=== PATIENT | female | born 1970 | race African-American/Black ===

== ENCOUNTER 2018-11-21 08:42 | Inpatient (IN) | payer MEDICAID, OTHER ==
[~2018-11-21] VITALS: Ht 162.6 cm; Wt 53.6 kg
[2018-11-21] MEDS ORDERED: SODIUM CHLORIDE 0.9% 1,000 ML IV ONE ×2 (09:46)
[2018-11-21] MEDS ORDERED: MORPHINE SULFATE 4 MG/ML SYR/VIAL IV ONE (10:00)
[2018-11-21] MEDS ORDERED: LORazepam 2MG/ML-1ML VIAL IV ONE (10:00)
[2018-11-21] MEDS ORDERED: hydrALAZINE HCL 20 MG/ML VL IV ONE (10:00)
[2018-11-21] MEDS ORDERED: PROMETHAZINE HCL 25 MG/ML 1ML IV ONE (10:00)
[2018-11-21 10:30] LABS: Basophils # (auto) 0 uL; Basophils % (auto) 0.5 % (0.0-2.0); Eosinophils # (auto) 0 uL; Eosinophils % (auto) 0.1 % (0.0-7.0); Hemoglobin 13.2 g/dL (12.2-16.2); Lymphocytes # (auto) 1.6 uL; Lymphocytes % (auto) 24.5 % (10.0-50.0); Mean Corpuscular Hemoglobin 28.5 pg (28.0-32.0); Mean Corpuscular Hgb Conc. 33.8 g/dL (32.0-36.0); Mean Corpuscular Volume 84.5 fL (80.0-100.0); Monocytes # (auto) 0.3 uL; Monocytes % (auto) 5.4 % (0.0-12.0); Neutrophils # (auto) 4.4 uL; Neutrophils % (auto) 69.5 % (37.0-80.0); Nucleated Red Blood Cells % 0.1 %; Platelet Count (auto) 228 10^3/uL (140-450); Red Blood Cells 4.61 10^6/uL (4.0-5.20); Red Cell Distribution Width 12.3 % (11.8-14.3); White Blood Cell 6.4 10^3/uL (4.4-10.8)
[2018-11-21 10:44] LABS: Albumin 4.4 g/dL (3.4-5.0); Calcium 9.1 mg/dL (8.5-10.1); Magnesium 1.7 mg/dL (1.6-2.6); Potassium 3.1 mmol/L (3.5-5.1)
[2018-11-21 10:50] LABS: BUN/Creatinine Ratio 13.6; Bilirubin, Total 0.6 mg/dL (0.2-1.0); Total Protein 9.3 g/dL (6.4-8.2)
[2018-11-21 11:00] LABS: Urine Bacteria NONE SEEN /hpf (None Seen); Urine Blood Negative /uL (Negative); Urine Mucus FEW (None Seen); Urine Specific Gravity 1.012 (1.001-1.035); Urine WBC <1 /hpf (0 - 5)
[2018-11-21] MEDS ORDERED: IOHEXOL 300 MG/ML 100ML BOTTLE IJ ONE ×2 (13:22→13:42)
[2018-11-21] MEDS ORDERED: ENOXAPARIN SOD 100 MG/1 ML SYRINGE SC ONE (14:00)
[2018-11-21] MEDS ORDERED: HYDROcodone-ACET 5/325MG TAB PO PRN (14:15)
[2018-11-21] MEDS ORDERED: NITROGLYCERIN 0.4 MG SL TAB SL PRN (14:15)
[2018-11-21] MEDS ORDERED: LORazepam 0.5 MG TAB PO PRN (14:15)
[2018-11-21] MEDS ORDERED: SOD CHL 0.9%/ KCL 20MEQ 1,000 ML IV SCH (14:15)
[2018-11-21] MEDS ORDERED: DEXTROSE (50%) 50ML SYRG IV PRN (14:15)
[2018-11-21] MEDS ORDERED: MORPHINE SULFATE 4 MG/ML SYR/VIAL IV PRN (14:15)
[2018-11-21] MEDS ORDERED: TEMAZEPAM 15 MG CAP PO PRN (14:15)
[2018-11-21] MEDS ORDERED: PANTOPRAZOLE 40 MG/10 ML VIAL IV ONE (14:15)
[2018-11-21] MEDS ORDERED: ACETAMINOPHEN 500 MG TAB PO PRN (14:15)
[2018-11-21] MEDS ORDERED: PROMETHAZINE HCL 25 MG/ML 1ML IV PRN (14:15)
[2018-11-21] MEDS ORDERED: LACTULOSE 20Gm/30ML SOLN PO PRN (14:15)
[2018-11-21] MEDS: NICARDIPINE 25MG/250ML BAG KIT 250 ML IV SCH ×2 (14:35→19:47)
[2018-11-21 17:18] LABS: Alcohol, Urine < 3.0 mg/dL (0-5); Amphetamine Screen, Urine NEGATIVE (NEGATIVE); Barbiturate Scree,Urine NEGATIVE (NEGATIVE); Benzodiazephine Screen, Urine NEGATIVE (NEGATIVE); Cannabinoid Screen, Urine NEGATIVE (NEGATIVE); Cocaine Screen, Urine NEGATIVE (NEGATIVE); Opiate Scree,Urine NEGATIVE (NEGATIVE); Phencyclidine Screen, Urine NEGATIVE (NEGATIVE)
[2018-11-21] MEDS: POTASSIUM CHL 20MEQ/100ML 100 ML IV SCH ×2 (18:09→21:53)
[2018-11-21] MEDS: ACCU-CHEK COMFORT CURVE STRIP VI SCH (18:11)
[2018-11-21] MEDS: CARVEDILOL 3.125 MG TAB PO SCH (21:59)
[2018-11-21] MEDS: ATORVASTATIN 20 MG TAB PO SCH (22:00)
[2018-11-21] MEDS: SODIUM CHLOR 0.9% PF (SALINE LOCK) 10ML VIAL/SYR IV SCH (22:00)
[2018-11-21] MEDS: METOPROLOL TARTRATE 25 MG TAB PO SCH (22:01)
[2018-11-22] MEDS: NICARDIPINE 25MG/250ML BAG KIT 250 ML IV SCH ×3 (00:03→09:58)
[2018-11-22] MEDS: ACCU-CHEK COMFORT CURVE STRIP VI SCH ×4 (00:10→17:44)
[2018-11-22] MEDS: SODIUM CHLOR 0.9% PF (SALINE LOCK) 10ML VIAL/SYR IV SCH ×3 (06:08→22:26)
[2018-11-22 08:17] LABS: Basophils # (auto) 0 uL; Basophils % (auto) 0.4 % (0.0-2.0); Eosinophils # (auto) 0 uL; Eosinophils % (auto) 0.2 % (0.0-7.0); Hemoglobin 13.5 g/dL (12.2-16.2); Lymphocytes # (auto) 1.4 uL; Lymphocytes % (auto) 17.9 % (10.0-50.0); Mean Corpuscular Hemoglobin 29.8 pg (28.0-32.0); Mean Corpuscular Hgb Conc. 35.6 g/dL (32.0-36.0); Mean Corpuscular Volume 83.7 fL (80.0-100.0); Monocytes # (auto) 0.6 uL; Monocytes % (auto) 7.9 % (0.0-12.0); Neutrophils # (auto) 5.7 uL; Neutrophils % (auto) 73.6 % (37.0-80.0); Nucleated Red Blood Cells % 0.1 %; Platelet Count (auto) 209 10^3/uL (140-450); Red Blood Cells 4.54 10^6/uL (4.0-5.20); Red Cell Distribution Width 12.4 % (11.8-14.3); White Blood Cell 7.8 10^3/uL (4.4-10.8)
[2018-11-22 08:28] LABS: Albumin 3.9 g/dL (3.4-5.0); Calcium 8.9 mg/dL (8.5-10.1); Potassium 3.3 mmol/L (3.5-5.1)
[2018-11-22 08:33] LABS: BUN/Creatinine Ratio 10.8; Bilirubin, Total 0.9 mg/dL (0.2-1.0); Total Protein 8.9 g/dL (6.4-8.2)
[2018-11-22 08:39] LABS: Amylase 49 U/L (25-115); Cholesterol 131 mg/dL (< 200); HDL Cholesterol 60 mg/dL (40-59); LDL Cholesterol 52 mg/dL (< 100); Lipase 143 U/L (73-393); Triglycerides 103 mg/dL (< 150)
[2018-11-22] MEDS: PANTOPRAZOLE 40 MG/10 ML VIAL IV SCH (09:08)
[2018-11-22] MEDS: ASPirin 81 mg TAB PO SCH (09:09)
[2018-11-22] MEDS: ENALAPRIL MALEATE 10 MG TAB PO SCH (09:09)
[2018-11-22] MEDS: METOPROLOL TARTRATE 25 MG TAB PO SCH ×2 (09:09→22:28)
[2018-11-22] MEDS: NITROGLYCERIN 0.2MG/HR TOPICAL PATCH TD SCH (09:10)
[2018-11-22] MEDS: CARVEDILOL 3.125 MG TAB PO SCH ×2 (09:18→22:26)
[2018-11-22] MEDS: ENOXAPARIN SOD 40 MG/0.4 ML SYRINGE SC SCH (09:22)
[2018-11-22 12:55] VITALS: BP 133/93
[2018-11-22 13:00] VITALS: BP 126/97
--- NOTE | 2018-11-22 13:00 | NUR ---
Telemetry admit from ER JO ANNJUDYCLIFF admitted to Telemetry unit after no report received.Patient oriented to Jolene Strong, primary RN, unit, room, bed, and unit policies regarding patient care and visiting hours. Patient is awake, alert and oriented X4. No signs or symptoms of pain, shortness of breath or discomfort. Patient now on continuous telemetry monitoring, tele box #6 and telemetry reading on arrival to unit is sinus rhythm @ 67 bpm. IV to right hand, 22 gauge, patent and saline locked. Patient placed on bedside oxygen, weighed by bedscale and encouraged to call if they need something. All questions and concerns addressed, patient verbalized understanding. Bed locked, in lowest position, call light within reach, will continue to monitor Q 1 hour and PRN.
--- NOTE | 2018-11-22 14:30 | NUR ---
MRCP Patient taken for MRCP via wheelchair, no distress noted upon departure.
--- NOTE | 2018-11-22 14:50 | NUR ---
MRCP Patient brought back up from MRCP, per Adelso, histotechnologist, patient refused MRCP. Notified Dr Charles, verbalized understanding.
[2018-11-22] MEDS: MORPHINE SULFATE 4 MG/ML SYR/VIAL IV PRN ×3 (15:26→23:02)
[2018-11-22 16:30] VITALS: BP 150/82
--- NOTE | 2018-11-22 17:44 | NUR ---
POC 128
--- NOTE | 2018-11-22 19:22 | NUR ---
Care endorsed to OUMOU Danielson, night nurse.
--- NOTE | 2018-11-22 19:30 | NUR ---
Opening Shift Note Assumed care of patient, patient asleep / resting. No S/S of distress/SOB or pain. Will continue to monitor for changes Q1hr and PRN.
--- NOTE | 2018-11-22 21:02 | NUR ---
Patient is adamant about transferring to [place]. Patient stated that she will sign herself out tomorrow if she does not get transferred tomorrow. Will inform dayshift RN.
[2018-11-22 21:37] VITALS: BP 106/54
[2018-11-22] MEDS: ATORVASTATIN 20 MG TAB PO SCH (22:28)
[2018-11-23] MEDS: ACCU-CHEK COMFORT CURVE STRIP VI SCH ×4 (00:27→17:37)
[2018-11-23 04:43] VITALS: BP 143/78
[2018-11-23] MEDS: SODIUM CHLOR 0.9% PF (SALINE LOCK) 10ML VIAL/SYR IV SCH ×2 (06:00→13:48)
[2018-11-23 08:00] VITALS: BP 159/86
--- NOTE | 2018-11-23 08:00 | NUR ---
Opening Shift Note Assumed care of patient, awake, alert and oriented X4. No S/S of distress/SOB, complains of right posterior flank and lower abdominal pain, 4/10, Andujar Tai scale, medicated with prescribed pain medication. Tele# 6, sinus rhythm @ 86 bpm. IV to right hand, 22 gauge, patent and saline locked. Instructed on POC and to call for assist PRN, verbalized understanding. Patient frustrated that she has not been seen by a doctor since yesterday morning in the ER. Informed there will be a doctor in to see her today, verbalized understanding but remains insistent that she wants to go to [place] "where she will be seen by a doctor" and if she is not transferred there today she will "sign" herself out AMA. Bed locked, in lowest position, call light within reach, will continue to monitor for changes Q1hr and PRN.
[2018-11-23] MEDS: MORPHINE SULFATE 4 MG/ML SYR/VIAL IV PRN (08:36)
[2018-11-23] MEDS: PANTOPRAZOLE 40 MG/10 ML VIAL IV SCH (09:52)
[2018-11-23] MEDS: METOPROLOL TARTRATE 25 MG TAB PO SCH (09:53)
[2018-11-23] MEDS: CARVEDILOL 3.125 MG TAB PO SCH (09:53)
[2018-11-23] MEDS: ENALAPRIL MALEATE 10 MG TAB PO SCH (09:53)
[2018-11-23] MEDS: ASPirin 81 mg TAB PO SCH (10:00)
[2018-11-23] MEDS: NITROGLYCERIN 0.2MG/HR TOPICAL PATCH TD SCH (10:00)
[2018-11-23] MEDS: ENOXAPARIN SOD 40 MG/0.4 ML SYRINGE SC SCH (10:00)
--- NOTE | 2018-11-23 10:33 | NUR ---
LABS Patient refused lab draw, wants to speak with the doctor first. Awaiting provider.
--- NOTE | 2018-11-23 10:54 | NUR ---
CARDIOLOGY Dr Gomes at bedside for Cardiology consult, no new orders received at this time. Patient updated on plan of care, verbalized understanding.
[2018-11-23 12:00] VITALS: BP 131/82
--- NOTE | 2018-11-23 15:54 | NUR ---
ROUNDS Dr Nowak at bedside for rounds, new orders received and followed through. Patient updated on plan of care, verbalized understanding.
[2018-11-23 16:00] VITALS: BP 133/83
[2018-11-23 17:06] VITALS: BP 133/83
== END 2018-11-23 18:35 | disposition home or self-care (01) | DRG 190 ==
LOC: ER 08:42 → OVERFLOW 14:08 → TELE-WESTW 11-22 12:47
PROVIDERS: ADMIT Internal Medicine; ATTEND Internal Medicine
DX: I21.4 Non-ST elevation (NSTEMI) myocardial infarction (principal); E87.1 Hypo-osmolality and hyponatremia; K80.20 Calculus of gallbladder without cholecystitis without obstruction; I16.0 Hypertensive urgency; E87.6 Hypokalemia; D25.9 Leiomyoma of uterus, unspecified; I10 Essential (primary) hypertension; K42.9 Umbilical hernia without obstruction or gangrene; K86.9 Disease of pancreas, unspecified; R73.9 Hyperglycemia, unspecified; I08.0 Rheumatic disorders of both mitral and aortic valves
CPT/HCPCS: 36415; 70450; 71045; 74176; 74177; 76705; 80053; 80061; 80307; 81001; 81025; 82150; 82378; 82550; 82962; 83036; 83690; 83735; 83880; 84443; 84484; 85025; 85652; 86141; 93005; 93306; 96361; 96372; 96374; 96375; C9113; G0378; J3480

== ENCOUNTER 2024-09-01 21:38 | Emergency (ER) | payer MEDICAID ==
[2024-09-02] MEDS ORDERED: HYDR50TA47 PO (13:28)
== END 2024-09-01 22:38 | disposition left against medical advice (07) ==
LOC: ER 21:38

== ENCOUNTER 2024-09-02 12:09 | Emergency (ER) | payer MEDICAID ==
[~2024-09-02] VITALS: Ht 167.6 cm; Wt 100.5 kg
--- NOTE | 2024-09-02 12:30 | ED.PDOC ---
History of Present Illness HPI Comments 54 year old female with h/o diet controlled HTN now complains of intermittent dull frontal headache, fatigue and some dull achy pain in her legs for the last 5 days intermittent. Patient also noticed that her blood pressure was elevated. Pt went to [facility] urgent [facility] and they sent her to ED due to elevated BP. Patient denies any N/V, weakness, dizziness, numbness, SOB, cough, or fever. Chief Complaint: High Blood Pressure Time Seen by MD: 12:12 Primary Care Provider: CHASE Reviewed Notes: Nurses Notes, Medications, Allergies Allergies: Coded Allergies: NO KNOWN ALLERGIES (Unverified , 11/21/18) Home Meds Active Scripts Hydralazine Hcl (Hydralazine Hcl) 50 Mg Tab, 1 TAB PO BID for 60 Days, #120 TAB 3 Refills Prov:YAS GONZALEZ MD 09/02/24 Information Source: Patient Mode of Arrival: Ambulatory Severity: Moderate Timing: Days Duration: Intermittent Prehospital treatment: None Past Medical History PAST MEDICAL HISTORY: HTN, Denies Surgical History: Denies all surgeries BI TRI OPERATOR History: No Pertinent BI TRI OPERATOR History Family History Family History: Unknown Social History Smoker: Non-Smoker Alcohol: Denies ETOH Use Drugs: Denies Drug Use Lives In: Home Constitutional: reports: fatigue, malaise, weakness; denies: chills, diaphoresis, fever, sweats, others EENTM: denies: blurred vision, double vision, ear bleeding, ear discharge, ear drainage, ear pain, ear ringing, eye pain, eye redness, hearing loss, mouth pain, mouth swelling, nasal discharge, nose bleeding, nose congestion, nose pain, photophobia, tearing, throat pain, throat swelling, voice changes, others Respiratory: denies: cough, hemoptysis, orthopnea, SOB at rest, shortness of breath, SOB with excertion, stridor, wheezing, others Cardiovascular: denies: chest pain, dizzy spells, diaphoresis, Dyspnea on exertion, edema, irregular heart beat, left arm pain, lightheadedness, palpitations, PND, syncope, others Gastrointestinal: denies: abdomen distended, abdominal pain, blood streaked bowels, constipated, diarrhea, dysphagia, difficulty swallowing, hematemesis, melena, nausea, poor appetite, poor fluid intake, rectal bleeding, rectal pain, vomiting, others Genitourinary: denies: abnormal vagina bleeding, burning, dyspareunia, dysuria, flank pain, frequency, hematuria, incontinence, pain, , vagina discharge, urgency, others Neurological: reports: dizziness, headache; denies: fainting, left sided numbness, left sided weakness, numbness, paresthesia, pre-existing deficit, right sided numbness, right sided weakness, seizure, speech problems, tingling, tremors, weakness, others Musculoskeletal: reports: muscle pain, muscle stiffness; denies: back pain, gout, joint pain, joint swelling, neck pain, others Integumetry: denies: bruises, change in color, change in hair/nails, dryness, laceration, lesions, lumps, rash, wounds, others Allergic/Immunocompromised: denies: Difficulty Healing, Frequent Infections, Hives, Itching, others Hematologic/Lymphatic: denies: anemia, blood clots, easy bleeding, easy bruising, swollen glands, others Endocrine: denies: excessive hunger, excessive sweating, excessive thirst, excessive urination, flushing, intolerance to cold, intolerance to heat, unexplained weight gain, unexplained weight loss, others Psychiatric: denies: anxiety, bipolar disorder, depression, hopeless, panic disorder, schizophrenia, sleepless, suicidal, others All Other Systems: Reviewed and Negative Physical Exam Exam Comments BP high General Appearance: Mild Distress HEENT: Normal ENT Inspection, Pharynx Normal, TMs Normal Neck: Full Range of Motion, Non-Tender, Normal, Normal Inspection Respiratory: Chest Non-Tender, Lungs Clear, No Accessory Muscle Use, No Respiratory Distress, Normal Breath Sounds Cardiovascular: No Edema, No JVD, No Murmur, No Gallop, Normal Peripheral Pulses, Regular Rate/Rhythm Breast Exam: Deferred Gastrointestinal: No Organomegaly, Non Tender, No Pulsatile Mass, Normal Bowel Sounds, Soft Genitalia: Deferred Pelvic: Deferred Rectal: Deferred Extremities: No calf tenderness, Normal capillary refill, Normal inspection, Normal range of motion, Non-tender, No pedal edema Musculoskeletal : Apperance: Normal Neurologic: Alert, critical care registered nurse II-XII nml as Tested, No Motor Deficits, Normal Affect, Normal Mood, No Sensory Deficits Cerebellar Function: Normal Reflexes: Normal Skin: Dry, Normal Color, Warm Lymphatic: No Adenopathy Was a procedure done? Was a procedure done?: No Differential Dx Considerations may include: intracranial hemorrhage, stroke, coronary ischemia, renal failure, end organ failure and others X-Ray, Labs, Meds, VS Vital Signs Date Time Temp Pulse Resp B/P (MAP) Pulse Ox O2 Delivery O2 Flow Rate FiO2 09/02/24 13:46 192/120 09/02/24 13:08 77 16 97 Room Air 09/02/24 13:08 98.3 77 16 231/125 (160) 97 98.3 09/02/24 12:45 231/125 09/02/24 12:17 97.9 78 18 230/129 (162) 98 Lab Test 09/02/24 12:28 Range/Units White Blood Count 3.3 L 4.4-10.8 10^3/uL Red Blood Count 4.38 4.0-5.20 10^6/uL Hemoglobin 12.4 12.2-16.2 g/dL Hematocrit 36.4 36.0-46.0 % Mean Corpuscular Volume 83.2 80.0-100.0 fL Mean Corpuscular Hemoglobin 28.3 28.0-32.0 pg Mean Corpuscular Hemoglobin Concent 34.0 32.0-36.0 g/dL Red Cell Distribution Width 12.7 11.8-14.3 % Platelet Count 197 140-450 10^3/uL Mean Platelet Volume 9.4 6.9-10.8 fL Neutrophils (%) (Auto) 46.0 37.0-80.0 % Lymphocytes (%) (Auto) 46.6 10.0-50.0 % Monocytes (%) (Auto) 6.1 0.0-12.0 % Eosinophils (%) (Auto) 0.6 0.0-7.0 % Basophils (%) (Auto) 0.7 0.0-2.0 % Neutrophils # (Auto) 1.5 L 1.6-8.6 10 ^3/uL Lymphocytes # (Auto) 1.6 0.4-5.4 10 ^3/uL Monocytes # (Auto) 0.2 0-1.3 10 ^3/uL Eosinophils # (Auto) 0 0-0.8 10 ^3/uL Basophils # (Auto) 0 0-0.2 10 ^3/uL Nucleated Red Blood Cells 0.2 % Sodium Level 140 136-145 mmol/L Potassium Level 3.9 3.5-5.1 mmol/L Chloride Level 105 98-107 mmol/L Carbon Dioxide Level 30 20-31 mmol/L Anion Gap 5 5-15 Blood Urea Nitrogen 13 9-23 mg/dL Creatinine 1.02 0.550-1.02 mg/dL Glomerular Filtration Rate Calc 66 >90 mL/min BUN/Creatinine Ratio 12.7 10.0-20.0 Serum Glucose 140 H 74-106 mg/dL Calcium Level 10.2 8.7-10.4 mg/dL Total Bilirubin 0.7 0.2-1.0 mg/dL Aspartate Amino Transferase (AST) 23 13-40 U/L Alanine Aminotransferase (ALT) 24 7-40 U/L Alkaline Phosphatase 78 46-116 U/L Troponin I High Sensitivity 6 </=34 ng/L B-Type Natriuretic Peptide 83.56 0-100 pg/mL Total Protein 7.8 5.7-8.2 g/dL Albumin 4.3 3.2-4.8 g/dL Current Medications Medications (Trade) Dose Ordered Sig/Marky Route Start Time Stop Time Status Last Admin Hydralazine HCl (Apresoline Tablet) 50 mg ONCE ONCE PO 09/02/24 12:30 09/02/24 12:31 DC 09/02/24 12:45 Hydralazine HCl (Apresoline Tablet) 50 mg ONCE ONCE PO 09/02/24 13:45 09/02/24 13:46 DC 09/02/24 13:46 CHEST XR: FINDINGS: Lines and Tubes: None Lungs: No focal consolidation. Pleura: No effusion. No pneumothorax. Cardiomediastinal contours: Unremarkable Bones: No acute osseous abnormality. IMPRESSION: No acute cardiopulmonary disease. Time of 1ST Reevaluation: 12:29 Reevaluation 1ST: Unchanged Time of 2ND Reevaluation: 14:00 Reevaluation 2ND: Improved Patient Education/Counseling: Diagnosis, Treatment Family Education/Counseling: No Family Present Departure 1 Departure Time of Disposition: 14:00 Impression: Primary Impression: Hypertension, uncontrolled Disposition: 01 HOME / SELF CARE / HOMELESS Condition: Stable e-Prescriptions Hydralazine Hcl (Hydralazine Hcl) 50 Mg Tab 1 TAB PO BID for 60 Days, #120 TAB 3 Refills Prov: YAS GONZALEZ MD 09/02/24 Discharged With: Self Critical Care Note Critical Care Time?: No Stability Stability form required: No Heart Score Heart Score: Heart Score Response (Comments) Value History Slightly Suspicious 0 EKG Normal 0 Age 45-64 1 Risk Factors 1 or 2 risk factors 1 Troponin Normal limit 0 Total 2 I personally scribed for YAS GONZALEZ MD ([email or web address]) on 09/02/24 at 12:37. Electronically submitted by Jose Maria Guzman ([email or web address]). I personally scribed for YAS GONZALEZ MD ([email or web address]) on 09/02/24 at 13:10. Electronically submitted by Stefani Barksdale ([email or web address]). YAS GONZALEZ MD Sep 02, 2024 12:30
[2024-09-02 12:43] LABS: Basophils # (auto) 0 10 ^3/uL (0-0.2); Basophils % (auto) 0.7 % (0.0-2.0); Eosinophils # (auto) 0 10 ^3/uL (0-0.8); Eosinophils % (auto) 0.6 % (0.0-7.0); Hematocrit 36.4 % (36.0-46.0); Hemoglobin 12.4 g/dL (12.2-16.2); Lymphocytes # (auto) 1.6 10 ^3/uL (0.4-5.4); Lymphocytes % (auto) 46.6 % (10.0-50.0); Mean Corpuscular Hemoglobin 28.3 pg (28.0-32.0); Mean Corpuscular Volume 83.2 fL (80.0-100.0); Monocytes # (auto) 0.2 10 ^3/uL (0-1.3); Monocytes % (auto) 6.1 % (0.0-12.0); Neutrophils # (auto) 1.5 10 ^3/uL (1.6-8.6); Nucleated Red Blood Cells % 0.2 %; Platelet Count (auto) 197 10^3/uL (140-450); Red Blood Cells 4.38 10^6/uL (4.0-5.20); Red Cell Distribution Width 12.7 % (11.8-14.3); White Blood Cell 3.3 10^3/uL (4.4-10.8)
[2024-09-02] MEDS: hydrALAZINE HCL 25 MG TAB PO ONE ×2 (12:45→13:46)
[2024-09-02 12:55] LABS: Alanine Aminotransferase 24 U/L (7-40); Alkaline Phosphatase 78 U/L (46-116); Anion Gap 5 (5-15); Aspartate Aminotransferase 23 U/L (13-40); BUN/Creatinine Ratio 12.7 (10.0-20.0); Blood Urea Nitrogen 13 mg/dL (9-23); Calcium 10.2 mg/dL (8.7-10.4); Carbon Dioxide 30 mmol/L (20-31); Chloride 105 mmol/L (98-107); Potassium 3.9 mmol/L (3.5-5.1); Sodium 140 mmol/L (136-145)
[2024-09-02 12:56] LABS: Albumin 4.3 g/dL (3.2-4.8); Bilirubin, Total 0.7 mg/dL (0.2-1.0); Total Protein 7.8 g/dL (5.7-8.2)
[2024-09-02 12:57] LABS: Glucose 140 mg/dL (74-106)
--- NOTE | 2024-09-02 13:04 | DVH ---
CHEST RADIOGRAPH Indication: weak Technique: Single frontal view of the chest was obtained Comparison: None FINDINGS: Lines and Tubes: None Lungs: No focal consolidation. Pleura: No effusion. No pneumothorax. Cardiomediastinal contours: Unremarkable Bones: No acute osseous abnormality. IMPRESSION: No acute cardiopulmonary disease.
[2024-09-02 13:08] VITALS: BP 231/125; PULSE 77; RESP 16; TEMP 98.3; O2SAT 97
[2024-09-02] MEDS ORDERED: HYDR50TA47 PO (13:28)
== END 2024-09-02 14:46 | disposition home or self-care (01) ==
LOC: ER 12:09
DX: I10 Essential (primary) hypertension (principal); Z79.899 Other long term (current) drug therapy
CPT/HCPCS: 36415; 71045; 80053; 83880; 84484; 85025

== ENCOUNTER 2024-09-14 14:01 | Inpatient (IN) | payer MEDICAID ==
[~2024-09-14] VITALS: Ht 170.2 cm; Wt 90.9 kg
[~2024-09-14 14:01] MED LIST: HYDR50TA47 PO
[2024-09-14 14:35] LABS: Basophils # (auto) 0 10 ^3/uL (0-0.2); Basophils % (auto) 0.6 % (0.0-2.0); Eosinophils # (auto) 0 10 ^3/uL (0-0.8); Eosinophils % (auto) 0.7 % (0.0-7.0); Hematocrit 32.5 % (36.0-46.0); Hemoglobin 11.3 g/dL (12.2-16.2); Lymphocytes # (auto) 2.3 10 ^3/uL (0.4-5.4); Lymphocytes % (auto) 44.2 % (10.0-50.0); Mean Corpuscular Hgb Conc. 34.8 g/dL (32.0-36.0); Mean Corpuscular Volume 83.2 fL (80.0-100.0); Monocytes # (auto) 0.4 10 ^3/uL (0-1.3); Neutrophils # (auto) 2.5 10 ^3/uL (1.6-8.6); Neutrophils % (auto) 47.5 % (37.0-80.0); Nucleated Red Blood Cells % 0.2 %; Platelet Count (auto) 209 10^3/uL (140-450); Red Cell Distribution Width 12.3 % (11.8-14.3); White Blood Cell 5.3 10^3/uL (4.4-10.8)
[2024-09-14 14:45] LABS: Anion Gap 7 (5-15); Carbon Dioxide 29 mmol/L (20-31); Chloride 104 mmol/L (98-107); Sodium 140 mmol/L (136-145)
[2024-09-14 14:46] LABS: Calcium 9.8 mg/dL (8.7-10.4)
--- NOTE | 2024-09-14 14:49 | ECG ---
[facility] Test Date: 2024-09-14 Test Time: 14:09:29 Pat Name: CLIFF HARDEN Department: er Room: Gender: F [employer] Member: riky : 1970 Requested By: DEJUAN ARRIAZA Order Number: [id number] Reading MD: Measurements Intervals [place] Rate: 91 P: 89 GA: 209 QRS: 61 QRSD: 89 T: -90 QT: 380 QTc: 468 Interpretive Statements Sinus rhythm Prolonged GA interval Probable LVH with secondary repol abnrm Baseline wander in lead(s) V4,V5,V6 Please click the below link to view image of tracing.
[2024-09-14 14:51] LABS: BUN/Creatinine Ratio 15.5 (10.0-20.0); Blood Urea Nitrogen 17 mg/dL (9-23)
[2024-09-14 14:54] VITALS: PULSE 83; RESP 18; O2SAT 95
[2024-09-14 14:55] LABS: Glucose 183 mg/dL (74-106)
[2024-09-14] MEDS: hydrALAZINE HCL 20 MG/ML VL IV ONE ×2 (14:59→15:31)
[2024-09-14] MEDS: POTASSIUM EFFERVESENT TAB 25 MEQ PO ONE ×2 (15:33→20:15)
[2024-09-14] MEDS: LABETALOL HCL 20 MG/4 ML VL IV ONE ×3 (16:59→22:00)
[2024-09-14] MEDS ORDERED: POTASSIUM EFFERVESENT TAB 25 MEQ PO ONE (17:15)
[2024-09-14 17:32] LABS: Urine Bacteria FEW /hpf (None Seen); Urine Blood Negative /uL (Negative); Urine Clarity Clear (Clear); Urine Color Light-Yellow (Yellow); Urine Mucus FEW (None Seen); Urine Protein, UAD Negative (Negative); Urine Specific Gravity 1.014 (1.001-1.035); Urine Urobilinogen Normal (Negative); Urine WBC 1 /hpf (0 - 5)
--- NOTE | 2024-09-14 18:44 | ECG ---
[facility] Test Date: 2024-09-14 Test Time: 15:08:28 Pat Name: CLIFF HARDEN Department: ER Room: Gender: F [employer] Expediter: TERRI : 1970 Requested By: DEJUAN ARRIAZA Order Number: [id number] Reading MD: Measurements Intervals [place] Rate: 85 P: 78 WI: 242 QRS: 53 QRSD: 87 T: 269 QT: 401 QTc: 477 Interpretive Statements Sinus rhythm Prolonged WI interval Probable LVH with secondary repol abnrm Please click the below link to view image of tracing.
--- NOTE | 2024-09-14 18:48 | DVH ---
CHEST RADIOGRAPH Indication: shortness of breath Technique: Single frontal view of the chest was obtained Comparison: XY CHEST PORTABLE on DOS: 09/02/24 FINDINGS: Lines and Tubes: None Lungs: Clear Pleura: No effusion. No pneumothorax. Cardiomediastinal contours: Unremarkable Bones: Unremarkable IMPRESSION: 1. Clear lungs.
--- NOTE | 2024-09-14 18:59 | ED.PDOC ---
HPI Comments 54-year-old female with past medical history of hypertension and past surgical history of 2 times one with chief complaint of palpitation, dizziness, headache. Patient mentioned that she was working at [employer], today where she started feeling palpitations associated with dizziness and headache. Blood pressure was measured at the facility which revealed a value of 200s over 110s as per patient. Patient called EMS and on presentation patient had a blood pressure of 217/116. In the ER, patient denied any active symptoms. She was recently in the ER one week ago where she was diagnosed with hypertension and was prescribed hydralazine which she is taking regularly. Patient denied any chest pain, shortness of breath, orthopnea, PND, nausea, vomiting, diarrhea, constipation, abdominal pain, melena, hematochezia. Past medical history Hypertension Past surgical history section to time Social history Patient denied any history of smoking, alcohol, marijuana or any other drug intake Family history Patient denied any significant family history Allergic history No known allergies Review of system As described in the HPI Examination General Appearance: Alert, Oriented X3, Cooperative, No acute distress HEENT: EOMI Respiratory: Clear to auscultation, Normal air movement Cardiovascular: Regular rate, Normal S1, Normal S2 Abdominal: Normal bowel sounds Extremities: No cyanosis, No edema, Normal pulses, No tenderness/swelling Skin: No rashes, No breakdown Neuro: Normal speech and tone Chief Complaint: Palpitations Time Seen by MD: 14:29 Primary Care Provider: MIKE Allergies: Coded Allergies: NO KNOWN ALLERGIES (Unverified , 11/21/18) Home Meds Active Scripts Hydralazine Hcl (Hydralazine Hcl) 50 Mg Tab, 1 TAB PO BID for 60 Days, #120 TAB 3 Refills Prov:YAS GONZALEZ MD 09/02/24 Information Source: Patient Mode of Arrival: EMS CP Differential Dx Differential Diagnosis: A-fib, A-Flutter, Anxiety / Panic Attack, Electrolyte Disorder Differential Diagnosis: HTN Essential, HTN Accelerated, HTN Encephalopathy, Other (Hypertensive urgency, hypertensive emergency) X-Ray, Labs, Meds, VS Vital Signs Date Time Temp Pulse Resp B/P (MAP) Pulse Ox O2 Delivery O2 Flow Rate FiO2 09/14/24 23:00 189/93 09/14/24 22:56 75 198/127 09/14/24 22:00 81 211/119 09/14/24 21:28 81 211/119 09/14/24 21:28 97 208/112 09/14/24 20:15 95 206/112 09/14/24 19:55 97 18 206/112 (143) 97 09/14/24 17:25 97.5 84 17 163/86 (111) 97.5 09/14/24 16:59 86 182/108 09/14/24 16:01 99 22 209/128 (155) 98 09/14/24 15:31 188/100 09/14/24 15:08 85 09/14/24 14:59 215/118 09/14/24 14:54 83 18 95 Room Air* 0 21 09/14/24 14:09 91 09/14/24 14:06 98.0 90 16 217/116 (149) 98 Lab Test 09/14/24 17:00 09/14/24 15:01 09/14/24 15:00 09/14/24 14:10 Range/Units Troponin I High Sensitivity 17 13 13 </=34 ng/L Thyroid Stimulating Hormone (TSH) Pending Urine Color Light-yellow Yellow Urine Clarity Clear Clear Urine pH 6.0 5.0-9.0 Urine Specific [place] 1.014 1.001-1.035 Urine Protein Negative Negative Urine Ketones Negative Negative Urine Blood Negative Negative /uL Urine Nitrite Negative Negative Urine Bilirubin Negative Negative Urine Urobilinogen Normal Negative mg/dL Urine Leukocyte Esterase Negative Negative /uL Urine RBC <1 0 - 4 /hpf Urine WBC 1 0 - 5 /hpf Urine Squamous Epithelial Cells Few <5 /hpf Urine Bacteria Few H None Seen /hpf Urine Mucus Few None Seen Urine Glucose 1+ H Normal mg/dL Urine Test Negative Negative White Blood Count 5.3 4.4-10.8 10^3/uL Red Blood Count 3.90 L 4.0-5.20 10^6/uL Hemoglobin 11.3 L 12.2-16.2 g/dL Hematocrit 32.5 L 36.0-46.0 % Mean Corpuscular Volume 83.2 80.0-100.0 fL Mean Corpuscular Hemoglobin 29.0 28.0-32.0 pg Mean Corpuscular Hemoglobin Concent 34.8 32.0-36.0 g/dL Red Cell Distribution Width 12.3 11.8-14.3 % Platelet Count 209 140-450 10^3/uL Mean Platelet Volume 8.5 6.9-10.8 fL Neutrophils (%) (Auto) 47.5 37.0-80.0 % Lymphocytes (%) (Auto) 44.2 10.0-50.0 % Monocytes (%) (Auto) 7.0 0.0-12.0 % Eosinophils (%) (Auto) 0.7 0.0-7.0 % Basophils (%) (Auto) 0.6 0.0-2.0 % Neutrophils # (Auto) 2.5 1.6-8.6 10 ^3/uL Lymphocytes # (Auto) 2.3 0.4-5.4 10 ^3/uL Monocytes # (Auto) 0.4 0-1.3 10 ^3/uL Eosinophils # (Auto) 0 0-0.8 10 ^3/uL Basophils # (Auto) 0 0-0.2 10 ^3/uL Nucleated Red Blood Cells 0.2 % Sodium Level 140 136-145 mmol/L Potassium Level 3.0 L 3.5-5.1 mmol/L Chloride Level 104 98-107 mmol/L Carbon Dioxide Level 29 20-31 mmol/L Anion Gap 7 5-15 Blood Urea Nitrogen 17 9-23 mg/dL Creatinine 1.10 H 0.550-1.02 mg/dL Glomerular Filtration Rate Calc 60 >90 mL/min BUN/Creatinine Ratio 15.5 10.0-20.0 Serum Glucose 183 H 74-106 mg/dL Calcium Level 9.8 8.7-10.4 mg/dL Current Medications Medications (Trade) Dose Ordered Sig/Marky Route Start Time Stop Time Status Last Admin Hydralazine HCl (Apresoline Injection) 5 mg ONCE ONCE IV 09/14/24 14:15 09/14/24 14:38 DC 09/14/24 14:59 Hydralazine HCl (Apresoline Injection) 5 mg ONCE ONCE IV 09/14/24 15:15 09/14/24 15:16 DC 09/14/24 15:31 Potassium Bicarbonate (Klor-Con/Ef) 50 meq ONCE ONCE PO 09/14/24 15:30 09/14/24 15:31 DC 09/14/24 15:33 Labetalol HCl (Labetalol HCl) 5 mg ONCE ONCE IV 09/14/24 16:30 09/14/24 16:31 DC 09/14/24 16:59 Potassium Bicarbonate (Klor-Con/Ef) 50 meq ONCE ONCE PO 09/14/24 18:30 09/14/24 18:31 DC 09/14/24 20:15 Labetalol HCl (Labetalol HCl) 5 mg ONCE ONCE IV 09/14/24 19:30 09/14/24 19:31 DC 09/14/24 20:15 Ondansetron HCl (Zofran) 4 mg ONCE ONCE IV 09/14/24 20:30 09/14/24 20:31 DC 09/14/24 20:27 Labetalol HCl (Labetalol HCl) 5 mg ONCE ONCE IV 09/14/24 22:00 09/14/24 22:07 DC 09/14/24 22:00 Nitroglycerin (Nitro-Bid) 1 pkg ONCE ONCE TD 09/14/24 23:00 09/14/24 23:02 DC 09/14/24 23:00 Acetaminophen (Tylenol Tablet) 650 mg ONCE ONCE PO 09/14/24 23:00 09/14/24 23:02 DC 09/14/24 23:00 X-Ray, Labs, Meds, VS Comment Addendum by Dr. Zaria Anand: Patient seen in conjunction with Dr. Arora. Agree with the assessment, treatment and plan. Time of 1ST Reevaluation: 23:00 Reevaluation 1ST: Unchanged Patient Education/Counseling: Diagnosis, Treatment Family Education/Counseling: No Family Present Comments Patient presented with the hypertensive crisis, palpitations, dizziness. workup was initiated. patient was found to have hypertensive crisis. Patient was given: IV hydralazine 5 mg twice, IV labetalol 5 mg 3 time hypokalemia was corrected. pt still has BP in hypertensive crisis range. patient is started on nitroglycerin ointment and acetaminophen. patient was admitted to the medicine team for further evaluation and treatment of their presentation. Patient needs control of the blood pressure All the reports of any imaging studies that were ordered by myself were reviewed by myself. Departure 1 Departure Time of Disposition: 23:00 Impression: Primary Impression: Hypertensive crisis Additional Impressions: Uncontrolled hypertension Hypokalemia Disposition: ADMITTED INPATIENT Admit to: [facility] Condition: Guarded STACIE ARORA RESIDENT Sep 14, 2024 18:59 AU DEJUAN ANAND MD Sep 15, 2024 01:04
[2024-09-14] MEDS: ONDANSETRON HCL 4 MG/2 ML VIAL ONE (20:26)
[2024-09-14] MEDS: ONDANSETRON HCL 4 MG/2 ML VIAL IV ONE (20:27)
[2024-09-14] MEDS: ACETAMINOPHEN 325 MG TAB PO ONE (23:00)
[2024-09-14] MEDS: NITROGLYCERIN 2% OINT 1GM PKG TD ONE (23:00)
[2024-09-15] MEDS ORDERED: ACETAMINOPHEN 325 MG TAB PO PRN (00:45)
[2024-09-15] MEDS ORDERED: NITROGLYCERIN 0.4 MG SL TAB SL PRN (00:45)
[2024-09-15] MEDS ORDERED: hydrALAZINE HCL 20 MG/ML VL IV PRN (00:45)
[2024-09-15] MEDS ORDERED: ONDANSETRON HCL 4 MG/2 ML VIAL IV PRN (00:45)
[2024-09-15] MEDS ORDERED: MORPHINE SULFATE INJ 2 MG/ml SYRG IV PRN (00:45)
[2024-09-15] MEDS: POTASSIUM CHL 20 Meq TABLET PO ONE (01:29)
--- NOTE | 2024-09-15 04:46 | DVHHP2 ---
History of Present Illness Reason for Visit: DIZZINESS History of Present Illness 54-YEAR-OLD FEMALE PRESENTS FOR EVALUATION OF DIZZINESS. PATIENT ENDORSES A ONE DAY HISTORY OF DIZZINESS WITH ASSOCIATED PALPITATIONS AND HEADACHE. PATIENT REPORTS RECENTLY BEING DIAGNOSED WITH HYPERTENSION LAST WEEK. ON ARRIVAL PATIENT'S BLOOD PRESSURE WAS GREATER THAN 200. CURRENTLY SHE DENIES ANY COMPLAINTS. NO CHEST PAIN OR SHORTNESS FOR BREATH. NO UNILATERAL WEAKNESS OR BLURRED VISION. NO OTHER ACUTE COMPLAINTS REPORTED. Past Medical History HYPERTENSION Past Surgical History Family History NONCONTRIBUTORY Smoke: No ALCOHOL: none Drugs: None Lives: with Family Review of Systems Review of Systems REVIEW OF SYSTEMS ARE CURRENTLY NEGATIVE OTHERWISE ADDRESSED IN HPI. Allergies: Coded Allergies: NO KNOWN ALLERGIES (Unverified , 11/21/18) Medications Current Medications Medications Dose Ordered Sig/Marky Route Start Time Stop Time Status Last Admin Dose Admin Nicardipine HCl 250 ml @ 50 mls/hr Q5H IV 09/15/24 00:45 09/15/24 01:35 50 MLS/HR Hydralazine HCl 10 mg Q6HP PRN IV 09/15/24 00:45 Hydralazine HCl 50 mg Q12HR PO 09/15/24 10:00 Aspirin 81 mg DAILY PO 09/15/24 10:00 Ondansetron HCl 4 mg Q4HP PRN IV 09/15/24 00:45 Acetaminophen 650 mg Q6HP PRN PO 09/15/24 00:45 Nitroglycerin 0.4 mg Q5MINP PRN SL 09/15/24 00:45 Morphine Sulfate 2 mg Q30M PRN IV 09/15/24 00:45 Exam Vital Signs Vital Signs Date Time Temp Pulse Resp B/P (MAP) Pulse Ox O2 Delivery O2 Flow Rate FiO2 09/15/24 04:25 79 17 127/68 (87) 97 09/14/24 17:25 97.5 97.5 09/14/24 14:54 Room Air* 0 21 Exam GEN: 54-YEAR-OLD FEMALE IN MILD DISTRESS SKIN: WARM, DRY, NORMAL COLOR AND TEXTURE, NO RASH. HEENT: NORMOCEPHALIC ATRAUMATIC, MUCOUS MEMBRANES MOIST AND PINK. NECK: CERVICAL AND SUPRACLAVICULAR NODES NORMAL WITHOUT ENLARGEMENT, TRACHEA IS MIDLINE, THYROID GLAND IS NORMAL WITHOUT MASSES. PULMONARY: CLEAR TO AUSCULTATION AND PERCUSSION BILATERALLY. CARDIAC: REGULAR RATE AND RHYTHM. NO MURMUR ABDOMEN: SOFT, NONTENDER, NONDISTENDED, BOWEL SOUNDS PRESENT ALL 4 QUADRANTS, NO GUARDING, NO RIGIDITY, NO ORGANOMEGALY. EXTREMITIES: NO CYANOSIS, CLUBBING, NO EDEMA NEURO: CRANIAL NERVES II THROUGH XII GROSSLY INTACT, NORMAL AFFECT AND SPEECH, NO FOCAL MOTOR DEFICITS. Labs/Xrays ORDERING PHYSICIAN: STACIE MCDONALD RESIDENT PROCEDURE(s): CXRP - CHEST PORTABLE REASON: shortness of breath ORDER NUMBER(s): [id number], ACCESSION NUMBER(s): [id number] CHEST RADIOGRAPH Indication: shortness of breath Technique: Single frontal view of the chest was obtained Comparison: XY CHEST PORTABLE on DOS: 09/02/24 FINDINGS: Lines and Tubes: None Lungs: Clear Pleura: No effusion. No pneumothorax. Cardiomediastinal contours: Unremarkable Bones: Unremarkable IMPRESSION: 1. Clear lungs. Labs Test 09/14/24 17:00 09/14/24 15:01 09/14/24 14:10 Range/Units Troponin I High Sensitivity 17 </=34 ng/L Thyroid Stimulating Hormone (TSH) 1.48 0.55-4.78 uIU/mL Urine Color Light-yellow Yellow Urine Clarity Clear Clear Urine pH 6.0 5.0-9.0 Urine Specific [place] 1.014 1.001-1.035 Urine Protein Negative Negative Urine Ketones Negative Negative Urine Blood Negative Negative /uL Urine Nitrite Negative Negative Urine Bilirubin Negative Negative Urine Urobilinogen Normal Negative mg/dL Urine Leukocyte Esterase Negative Negative /uL Urine RBC <1 0 - 4 /hpf Urine WBC 1 0 - 5 /hpf Urine Squamous Epithelial Cells Few <5 /hpf Urine Bacteria Few H None Seen /hpf Urine Mucus Few None Seen Urine Glucose 1+ H Normal mg/dL Urine Test Negative Negative White Blood Count 5.3 4.4-10.8 10^3/uL Red Blood Count 3.90 L 4.0-5.20 10^6/uL Hemoglobin 11.3 L 12.2-16.2 g/dL Hematocrit 32.5 L 36.0-46.0 % Mean Corpuscular Volume 83.2 80.0-100.0 fL Mean Corpuscular Hemoglobin 29.0 28.0-32.0 pg Mean Corpuscular Hemoglobin Concent 34.8 32.0-36.0 g/dL Red Cell Distribution Width 12.3 11.8-14.3 % Platelet Count 209 140-450 10^3/uL Mean Platelet Volume 8.5 6.9-10.8 fL Neutrophils (%) (Auto) 47.5 37.0-80.0 % Lymphocytes (%) (Auto) 44.2 10.0-50.0 % Monocytes (%) (Auto) 7.0 0.0-12.0 % Eosinophils (%) (Auto) 0.7 0.0-7.0 % Basophils (%) (Auto) 0.6 0.0-2.0 % Neutrophils # (Auto) 2.5 1.6-8.6 10 ^3/uL Lymphocytes # (Auto) 2.3 0.4-5.4 10 ^3/uL Monocytes # (Auto) 0.4 0-1.3 10 ^3/uL Eosinophils # (Auto) 0 0-0.8 10 ^3/uL Basophils # (Auto) 0 0-0.2 10 ^3/uL Nucleated Red Blood Cells 0.2 % Sodium Level 140 136-145 mmol/L Potassium Level 3.0 L 3.5-5.1 mmol/L Chloride Level 104 98-107 mmol/L Carbon Dioxide Level 29 20-31 mmol/L Anion Gap 7 5-15 Blood Urea Nitrogen 17 9-23 mg/dL Creatinine 1.10 H 0.550-1.02 mg/dL Glomerular Filtration Rate Calc 60 >90 mL/min BUN/Creatinine Ratio 15.5 10.0-20.0 Serum Glucose 183 H 74-106 mg/dL Calcium Level 9.8 8.7-10.4 mg/dL Assessment/Plan Assessment/Plan ASSESSMENT HYPERTENSIVE URGENCY ELECTROLYTE IMBALANCE ACUTE KIDNEY INJURY PLAN ADMIT THE PATIENT TO [facility] TO THE HOSPITALIST CONTINUE NICARDIPINE DRIP RESUME HOME MEDICATIONS REPLETE ELECTROLYTES CARDIOLOGY CONSULTATION ECHOCARDIOGRAM PENDING CONTINUE TREATMENT PER ORDERS. TOTAL CRITICAL CARE TIME EXCLUDING PROCEDURES PERFORMED THIS 50 MINUTES. Plan discussed with: Patient My Orders Orders - EDUARDO NAAVS AGACNP Procedure Category Date Status Time Hydralazine Injection PHA 09/15/24 In Process (Apresoline Inject 00:45 Echo 2d Mode Cardiac US 09/15/24 Logged DOP 00:33 Hydralazine Hcl PHA 09/15/24 In Process Tablet (Apresoline 10:00 Aspirin Tablet PHA 09/15/24 In Process 10:00 Admit ADMIT 09/15/24 Transmitted 00:33 Ondansetron Hcl [facility] 09/15/24 In Process (Zofran) 00:45 Cardiac DIET 09/15/24 Transmitted Diet-2gna,Lofat,Lochol Breakfast Condition: Fair [facility] 09/15/24 In Process 00:33 Acetaminophen Tablet [facility] 09/15/24 In Process (Tylenol Tablet) 00:45 Bedrest With Bathroom [facility] 09/15/24 In Process Privileg 00:33 Nitroglycerin [facility] 09/15/24 In Process Sublingual (Ntrostat 00:45 Morphine Sulfate [facility] 09/15/24 In Process Injection 00:45 Stat Ekg For Chest [facility] 09/15/24 In Process Pain 00:33 Notify Md Of Changes [facility] 09/15/24 In Process From Base 00:33 Calculator Operator For [facility] 09/15/24 In Process 24 Hours 00:33 Emergency Dysrhythmia [facility] 09/15/24 In Process Protocol 00:33 Rhythm Strips Once [facility] 09/15/24 In Process Every Shift 00:33 Oxygen By Nasal RT 09/15/24 Transmitted Cannula 00:33 Basic Metabolic Panel LAB 09/16/24 Verified 04:00 * Cardiology Consult CONS 09/15/24 Transmitted 00:33 Transfer Orders XFER 09/15/24 Transmitted 03:22 Date of Service: Sep 15, 2024 Billing Provider: EDUARDO NAVAS Common Visit Codes: [id number] CARE 30-74 MIN EDUARDO NAVAS Sep 15, 2024 04:46
[2024-09-15 07:45] VITALS: PULSE 92; RESP 19; O2SAT 93
[2024-09-15 08:00] VITALS: TEMP 99
[2024-09-15] MEDS: ASPirin 81 mg TAB PO SCH (10:00)
[2024-09-15] MEDS: hydrALAZINE HCL 25 MG TAB PO SCH (10:41)
--- NOTE | 2024-09-15 11:13 | DVHPN2 ---
Assessment/Plan Assessment/Plan Progress note Subjective Objective Physical exam Lab EKG LVH with repolarization abnormalities Imaging Echo with Assessment and plan Hypertensive urgency, concerning for 2nd HTN Hypertensive heart disease Hypokalemia Metabolic alkalosis Obesity SHERYL likely VMN, cannot rule out CKD Discontinue nicardipine drip Start amlodipine, hydrochlorothiazide and losartan (hold until after serum judi and renin) Replete K send serum judi and renin Patient need to follow up with PCP in 1 week for repeat BMP, renal US Lifestyle modification Transfer to telemetry Replete electrolytes Diet heart healthy DVT prophylaxis ambulatory 40 Minutes critical care time spent on this patient including evaluation, chart review, formulating plan and communication with team, excluding any procedures or point of care imaging HODAN BEASLEY MD Sep 15, 2024 11:13
[2024-09-15] MEDS ORDERED: LOSARTAN POTASSIUM 25 MG TAB PO ONE (11:15)
[2024-09-15 12:00] LABS: Chloride 106 mmol/L (98-107); Potassium 4.8 mmol/L (3.5-5.1); Sodium 137 mmol/L (136-145)
[2024-09-15 12:01] LABS: Anion Gap 6 (5-15); Calcium 9.8 mg/dL (8.7-10.4); Carbon Dioxide 25 mmol/L (20-31)
[2024-09-15 12:06] LABS: BUN/Creatinine Ratio 9.2 (10.0-20.0); Blood Urea Nitrogen 9 mg/dL (9-23)
[2024-09-15] MEDS: amLODIPine BESYLATE 5 MG TAB PO ONE (12:06)
[2024-09-15 12:07] LABS: Glucose 157 mg/dL (74-106)
[2024-09-15] MEDS: hydroCHLOROthiazide 25 MG TAB PO ONE (12:11)
[2024-09-15] MEDS: hydroCHLOROthiazide 25 MG TAB PO SCH (12:13)
[2024-09-15 12:31] VITALS: BP 167/91; PULSE 90; RESP 19; O2SAT 93
[2024-09-15] MEDS: LOSARTAN POTASSIUM 25 MG TAB PO ONE (13:56)
[2024-09-15] MEDS ORDERED: AML5T PO (13:57)
[2024-09-15] MEDS ORDERED: HYDR25TA5 PO (13:57)
--- NOTE | 2024-09-15 14:02 | DVHDS2 ---
Discharge Summary Date of Admission Sep 15, 2024 at 00:39 Date of Discharge: Sep 15, 2024 Labs/Diagnostic Data: Laboratory Results Test 09/15/24 11:25 09/14/24 17:00 09/14/24 15:01 09/14/24 14:10 Sodium Level 137 mmol/L (136-145) Potassium Level 4.8 mmol/L (3.5-5.1) Chloride Level 106 mmol/L (98-107) Carbon Dioxide Level 25 mmol/L (20-31) Anion Gap 6 (5-15) Blood Urea Nitrogen 9 mg/dL (9-23) Creatinine 0.98 mg/dL (0.550-1.02) Glomerular Filtration Rate Calc 69 mL/min (>90) BUN/Creatinine Ratio 9.2 (10.0-20.0) Serum Glucose 157 mg/dL (74-106) Calcium Level 9.8 mg/dL (8.7-10.4) Troponin I High Sensitivity 17 ng/L (</=34) Thyroid Stimulating Hormone (TSH) 1.48 uIU/mL (0.55-4.78) Urine Color Light-yellow (Yellow) Urine Clarity Clear (Clear) Urine pH 6.0 (5.0-9.0) Urine Specific [place] 1.014 (1.001-1.035) Urine Protein Negative (Negative) Urine Ketones Negative (Negative) Urine Blood Negative /uL (Negative) Urine Nitrite Negative (Negative) Urine Bilirubin Negative (Negative) Urine Urobilinogen Normal mg/dL (Negative) Urine Leukocyte Esterase Negative /uL (Negative) Urine RBC <1 /hpf (0 - 4) Urine WBC 1 /hpf (0 - 5) Urine Squamous Epithelial Cells Few /hpf (<5) Urine Bacteria Few /hpf (None Seen) Urine Mucus Few (None Seen) Urine Glucose 1+ mg/dL (Normal) Urine Test Negative (Negative) White Blood Count 5.3 10^3/uL (4.4-10.8) Red Blood Count 3.90 10^6/uL (4.0-5.20) Hemoglobin 11.3 g/dL (12.2-16.2) Hematocrit 32.5 % (36.0-46.0) Mean Corpuscular Volume 83.2 fL (80.0-100.0) Mean Corpuscular Hemoglobin 29.0 pg (28.0-32.0) Mean Corpuscular Hemoglobin Concent 34.8 g/dL (32.0-36.0) Red Cell Distribution Width 12.3 % (11.8-14.3) Platelet Count 209 10^3/uL (140-450) Mean Platelet Volume 8.5 fL (6.9-10.8) Neutrophils (%) (Auto) 47.5 % (37.0-80.0) Lymphocytes (%) (Auto) 44.2 % (10.0-50.0) Monocytes (%) (Auto) 7.0 % (0.0-12.0) Eosinophils (%) (Auto) 0.7 % (0.0-7.0) Basophils (%) (Auto) 0.6 % (0.0-2.0) Neutrophils # (Auto) 2.5 10 ^3/uL (1.6-8.6) Lymphocytes # (Auto) 2.3 10 ^3/uL (0.4-5.4) Monocytes # (Auto) 0.4 10 ^3/uL (0-1.3) Eosinophils # (Auto) 0 10 ^3/uL (0-0.8) Basophils # (Auto) 0 10 ^3/uL (0-0.2) Nucleated Red Blood Cells 0.2 % Other Laboratory Tests 09/15/24 11:25 09/14/24 14:10 Brief Hx & Hospital Course: 54-year-old female with prior history of hypertension admitted for hypertensive urgency after sent by her office with elevated blood pressure reading. Initial BP reading more than 200 systolic and 110 diastolic. Patient was asymptomatic, started on nicardipine drip. On my assessment patient completely asymptomatic, chest clear, neurologically intact order. Start nicardipine drip, switch to oral medication. Patient was previously given hydralazine only, however reported that initially she was started on amlodipine. Doubt patient compliance on medication and follow up. Discussed with patient the need to titrate her blood pressure medication and monitor overnight, however patient reported that she wants to leave against medical advice. Patient was informed regarding risks of leaving and understood. Discharge medication sent to pharmacy Condition at Discharge: Fair Final Diagnosis/Problems List Hypertensive urgency Discharge Disposition: AMA Discharge Instruct/Medications Diet: Cardiac 2g Na,low cholest Activity: No Restrictions, As Tolerated Follow Up/Referral: PCP Medications: amlodipine 5mg daily HCTZ 12.5mg daily 39 Discharge Statement: "Patient was advised to return to the ER or call 911 if any headaches, dizziness, shortness of breath, chest pain, abdominal pain, bleeding, fevers, or worsening of medical condition. Patient was counseled about treatment plan, medications, possible side effects, patientverbalized understanding. All questions were answered to the best of my ability. This discharge took greater then 30 minutes in planning, reviewing documentation, counseling the patient, and discussing with other team members." ASSESSMENT ASSESSMENT Assessment Hypertensive urgency Possible secondary renovascular HTN hypokalemia metabolic alkalosis Obesity Date of Service: Sep 15, 2024 Billing Provider: HODAN BEASLEY MD Common Visit Codes: [id number] CARE 30-74 MIN HODAN BEASLEY MD Sep 15, 2024 14:02
--- NOTE | 2024-09-15 22:38 | DVHSR ---
APPROVED REPORT EXAM: Two-dimensional and M-mode echocardiogram with Doppler and color Doppler. Blood Pressure: 136/75 mmHg INDICATION hypertensive urgency RISK FACTORS Height: 5'7, Weight: 200 DIMENSIONS LVDd4.0 (3.8-5.7cm)LA (2D)5.0 (1.9-4.0cm)Aortic Root3.1 (2.0-3.7cm) LVDs2.5 (2.5-4.0cm)LA (MM) (1.9-4.0cm)Aortic Cusp Exc1.6 (1.5-2.0cm) EF (%) 65.0 (55-70%)Rt. Atrium3.3 (1.9-4.0cm)Asc. Aorta3.3 cm IVSd1.8 (0.7-1.1cm)RV (D) (1.8-2.4cm) PWd1.5 (0.7-1.1cm) Mitral Valve MitralMitral Stenosis E wave0.79m/sMV Mean GR.mmHg A wave0.98m/sMV Peak GR.65mmHg E/A ratio0.82D MVAcm2 DECEL [id number] 1/2 Timems Aortic Valve Aortic ValveAortic Stenosis V11.61m/[place]ari[place] Mean GR.17mmHg V22.60m/[place] Peak GR.27mmHg LVOT Diameter2.1 (1.8-2.4cm)Doppler AVA2.14cm2 Pulmonic Valve V21.27m/s Tricuspid Valve TR Velocity2.78m/s [id number] Other Information Quality : LimitedRhythm : Conclusion Normal left ventricular size and dimension. Normal left ventricular systolic function estimated ejec tion fraction 65%. There is a grade 1 diastolic dysfunction. Normal right ventricular size and dimension. Normal right ventricular systolic function. Mildly inc reased right ventricular systolic pressure 35 mm of mercury. Normal biatrial size and dimension. Normal aortic valve structure and function. Normal mitral valve structure and function. Normal tricuspid valve structure and function. The pulmonary valve is grossly normal. No pericardial effusion.
[2024-09-16] MEDS ORDERED: LOSARTAN POTASSIUM 25 MG TAB PO SCH (10:00)
[2024-09-16] MEDS ORDERED: amLODIPine BESYLATE 5 MG TAB PO SCH (10:00)
== END 2024-09-15 14:26 | disposition left against medical advice (07) | DRG 305 ==
LOC: EDBD 14:01 → ER 14:01 → TELE 09-15 00:39
PROVIDERS: ADMIT Nurse Practitioner; ATTEND Student in an Organized Health Care Education/Training Program
DX: I16.0 Hypertensive urgency (principal); N17.9 Acute kidney failure, unspecified; E87.3 Alkalosis; Z53.29 Procedure and treatment not carried out because of patient's decision for other reasons; E87.6 Hypokalemia; E66.9 Obesity, unspecified; I15.0 Renovascular hypertension; Z79.899 Other long term (current) drug therapy
CPT/HCPCS: 36415; 71045; 80048; 81001; 81025; 84443; 84484; 85025; 93005; 93306; G0378; J2405

== ENCOUNTER 2025-01-12 17:08 | Inpatient (IN) | payer MEDICAID ==
[~2025-01-12] VITALS: Ht 162.6 cm; Wt 125.0 kg
[~2025-01-12 17:08] MED LIST changes: +AML5T PO; +HYDR25TA5 PO
--- NOTE | 2025-01-12 17:52 | ED.PDOC ---
History of Present Illness HPI Comments 54 year old female presents to the ED with a chief complaint of hypertension onset today. Patient states she went to see PCP at [facility] due to back pain, BP was elevated 184/130, was told by PCP to come to ED. Upon ED arrival BP was 191/121. Patient is prescribed medication for her PMHx HTN, HLD but is not complaint with medication, has not picked up prescription. Denies chest pain, shortness of breath, nausea, vomiting, diarrhea. No other symptoms or modifying factors present at this time. Chief Complaint: High Blood Pressure Time Seen by MD: 17:45 Primary Care Provider: MIKE Reviewed Notes: Nurses Notes, Medications, Allergies Allergies: Coded Allergies: NO KNOWN ALLERGIES (Unverified , 11/21/18) Home Meds Active Scripts Hctz (Hydrochlorothiazide) 25 Mg Tab, 12.5 MG PO DAILY for 30 Days, #15 TAB Prov:HODAN BEASLEY MD 09/15/24 Amlodipine Besylate (NORVASC TABLET) 5 Mg Tb, 5 MG PO DAILY for 30 Days, #30 TAB Prov:HODAN BEASLEY MD 09/15/24 Hydralazine Hcl (Hydralazine Hcl) 50 Mg Tab, 1 TAB PO BID for 60 Days, #120 TAB 3 Refills Prov:YAS GONZALEZ MD 09/02/24 Information Source: Patient Mode of Arrival: Ambulatory Severity: Moderate Timing: Hours Duration: Since onset Prehospital treatment: None Past Medical History PAST MEDICAL HISTORY: HTN Surgical History: (x2) [employer]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 Family History Family History: Reviewed,noncontributory to illness, No family hx of Cancer, No family hx of DM, No family hx of Heart gladis, No family hx of HTN, No family hx ofKidney gladis, No family hx of Liver gladis, No family hx of Lung gladis, No family hx of Stroke Social History Smoker: Non-Smoker Alcohol: Denies ETOH Use Drugs: Denies Drug Use Lives In: Home Constitutional: denies: chills, diaphoresis, fatigue, fever, malaise, sweats, weakness, others EENTM: denies: blurred vision, double vision, ear bleeding, ear discharge, ear drainage, ear pain, ear ringing, eye pain, eye redness, hearing loss, mouth pain, mouth swelling, nasal discharge, nose bleeding, nose congestion, nose pain, photophobia, tearing, throat pain, throat swelling, voice changes, others Respiratory: denies: cough, hemoptysis, orthopnea, SOB at rest, shortness of breath, SOB with excertion, stridor, wheezing, others Cardiovascular: reports: others (elevated BP); denies: chest pain, dizzy spells, diaphoresis, Dyspnea on exertion, edema, irregular heart beat, left arm pain, lightheadedness, palpitations, PND, syncope Gastrointestinal: denies: abdomen distended, abdominal pain, blood streaked bowels, constipated, diarrhea, dysphagia, difficulty swallowing, hematemesis, melena, nausea, poor appetite, poor fluid intake, rectal bleeding, rectal pain, vomiting, others Genitourinary: denies: abnormal vagina bleeding, burning, dyspareunia, dysuria, flank pain, frequency, hematuria, incontinence, pain, , vagina discharge, urgency, others Neurological: denies: dizziness, fainting, headache, left sided numbness, left sided weakness, numbness, paresthesia, pre-existing deficit, right sided numbness, right sided weakness, seizure, speech problems, tingling, tremors, weakness, others Musculoskeletal: denies: back pain, gout, joint pain, joint swelling, muscle pain, muscle stiffness, neck pain, others Integumetry: denies: bruises, change in color, change in hair/nails, dryness, laceration, lesions, lumps, rash, wounds, others Allergic/Immunocompromised: denies: Difficulty Healing, Frequent Infections, Hives, Itching, others Hematologic/Lymphatic: denies: anemia, blood clots, easy bleeding, easy bruising, swollen glands, others Endocrine: denies: excessive hunger, excessive sweating, excessive thirst, excessive urination, flushing, intolerance to cold, intolerance to heat, unexplained weight gain, unexplained weight loss, others Psychiatric: denies: anxiety, bipolar disorder, depression, hopeless, panic disorder, schizophrenia, sleepless, suicidal, others All Other Systems: Reviewed and Negative Physical Exam General Appearance: Moderate Distress HEENT: Normal ENT Inspection, Pharynx Normal, TMs Normal Neck: Full Range of Motion, Non-Tender, Normal, Normal Inspection Respiratory: Chest Non-Tender, Lungs Clear, No Accessory Muscle Use, No Respiratory Distress, Normal Breath Sounds Cardiovascular: No Edema, No JVD, No Murmur, No Gallop, Normal Peripheral Pulses, Regular Rate/Rhythm Breast Exam: Deferred Gastrointestinal: No Organomegaly, Non Tender, No Pulsatile Mass, Normal Bowel Sounds, Soft Genitalia: Deferred Pelvic: Deferred Rectal: Deferred Extremities: No calf tenderness, Normal capillary refill, Normal inspection, Normal range of motion, Non-tender, No pedal edema Musculoskeletal : Apperance: Normal Neurologic: Alert, turn laster II-XII nml as Tested, No Motor Deficits, Normal Affect, Normal Mood, No Sensory Deficits Cerebellar Function: Normal Reflexes: Normal Skin: Dry, Normal Color, Warm Lymphatic: No Adenopathy Was a procedure done? Was a procedure done?: No Differential Dx Considerations may include: Hypertensive crisis, accelerated hypertension, generalized weakness X-Ray, Labs, Meds, VS Vital Signs Date Time Temp Pulse Resp B/P (MAP) Pulse Ox O2 Delivery O2 Flow Rate FiO2 01/12/25 19:28 96 18 96 Room Air* 0 21 01/12/25 19:27 98.6 96 20 200/115 (143) 97 98.6 01/12/25 18:29 161/102 01/12/25 18:25 92 18 96 Room Air* 0 21 01/12/25 18:25 98.2 92 18 161/102 (121) 96 98.2 01/12/25 17:25 98.1 96 17 191/121 (144) 98 98.1 Lab Test 01/12/25 18:05 Range/Units White Blood Count 4.1 L 4.4-10.8 10^3/uL Red Blood Count 4.17 4.0-5.20 10^6/uL Hemoglobin 11.5 L 12.2-16.2 g/dL Hematocrit 34.3 L 36.0-46.0 % Mean Corpuscular Volume 82.3 80.0-100.0 fL Mean Corpuscular Hemoglobin 27.5 L 28.0-32.0 pg Mean Corpuscular Hemoglobin Concent 33.4 32.0-36.0 g/dL Red Cell Distribution Width 12.6 11.8-14.3 % Platelet Count 158 140-450 10^3/uL Mean Platelet Volume 10.3 6.9-10.8 fL Neutrophils (%) (Auto) 38.8 37.0-80.0 % Lymphocytes (%) (Auto) 51.2 H 10.0-50.0 % Monocytes (%) (Auto) 7.8 0.0-12.0 % Eosinophils (%) (Auto) 1.5 0.0-7.0 % Basophils (%) (Auto) 0.7 0.0-2.0 % Neutrophils # (Auto) 1.6 1.6-8.6 10 ^3/uL Lymphocytes # (Auto) 2.1 0.4-5.4 10 ^3/uL Monocytes # (Auto) 0.3 0-1.3 10 ^3/uL Eosinophils # (Auto) 0.1 0-0.8 10 ^3/uL Basophils # (Auto) 0 0-0.2 10 ^3/uL Nucleated Red Blood Cells 0.5 % Sodium Level 140 136-145 mmol/L Potassium Level 3.4 L 3.5-5.1 mmol/L Chloride Level 104 98-107 mmol/L Carbon Dioxide Level 29 20-31 mmol/L Anion Gap 7 5-15 Blood Urea Nitrogen 19 9-23 mg/dL Creatinine 1.09 H 0.550-1.02 mg/dL Glomerular Filtration Rate Calc 61 >90 mL/min BUN/Creatinine Ratio 17.4 10.0-20.0 Serum Glucose 198 H 74-106 mg/dL Calcium Level 9.7 8.7-10.4 mg/dL Current Medications Medications (Trade) Dose Ordered Sig/Marky Route Start Time Stop Time Status Last Admin Hydralazine HCl (Apresoline Injection) 15 mg ONCE ONCE IV 01/12/25 18:00 01/12/25 18:01 DC 01/12/25 18:29 The patient was given hydralazine 15 mg IV push The CBC and chemistry panel is within normal limits. The patient was blood pressure remained significantly elevated so we are going to start the patient on a nicardipine drip The patient understands and agrees with the management Images Reviewed?: Images reviewed and evaluated by me Time of 1ST Reevaluation: 18:15 Reevaluation 1ST: Unchanged Patient Education/Counseling: Diagnosis, Treatment, Prognosis Family Education/Counseling: No Family Present Additional Information -Reviewed patient's previous visit(s): None - The following tests were ordered, and results were reviewed by me: CBC, BMP, EKG - I discussed treatments and results with medical personnel and: patient Comprehensive systems review obtained and negative except for what is stated in the HPI. Departure 1 Departure Time of Disposition: 20:13 Impression: Primary Impression: Accelerated hypertension Disposition: 09 ADMITTED INPATIENT Admit to: ICU Condition: Fair Critical Care Note Critical Care Time?: Yes (45 min-critical care time only) Stability Stability form required: Yes Unstable for transfer: ICU, CCU, PCU, KEVIN (Intensive VS monitoring), ED Physician Assesment (Clinical assesment) Heart Score Heart Score: Heart Score Response (Comments) Value History N/A 0 EKG N/A 0 Age N/A 0 Risk Factors N/A 0 Troponin N/A 0 Total 0 I personally scribed for KT QUEVEDO MD ([email or web address]) on 01/12/25 at 17:52. Electronically submitted by Dayana Hurtado ([email or web address]). I personally scribed for KT QUEVEDO MD ([email or web address]) on 01/12/25 at 18:15. Electronically submitted by Dayana Hurtado ([email or web address]). KT QUEVEDO MD Jan 12, 2025 17:52
[2025-01-12 18:25] VITALS: PULSE 92; RESP 18; O2SAT 96
[2025-01-12 18:28] LABS: Chloride 104 mmol/L (98-107); Sodium 140 mmol/L (136-145)
[2025-01-12 18:29] LABS: Anion Gap 7 (5-15); Calcium 9.7 mg/dL (8.7-10.4); Carbon Dioxide 29 mmol/L (20-31)
[2025-01-12] MEDS: hydrALAZINE HCL 20 MG/ML VL IV ONE (18:29)
[2025-01-12 18:34] LABS: BUN/Creatinine Ratio 17.4 (10.0-20.0); Blood Urea Nitrogen 19 mg/dL (9-23)
[2025-01-12 18:36] LABS: Basophils # (auto) 0 10 ^3/uL (0-0.2); Basophils % (auto) 0.7 % (0.0-2.0); Eosinophils # (auto) 0.1 10 ^3/uL (0-0.8); Eosinophils % (auto) 1.5 % (0.0-7.0); Hematocrit 34.3 % (36.0-46.0); Hemoglobin 11.5 g/dL (12.2-16.2); Lymphocytes # (auto) 2.1 10 ^3/uL (0.4-5.4); Lymphocytes % (auto) 51.2 % (10.0-50.0); Mean Corpuscular Hemoglobin 27.5 pg (28.0-32.0); Mean Corpuscular Hgb Conc. 33.4 g/dL (32.0-36.0); Mean Corpuscular Volume 82.3 fL (80.0-100.0); Monocytes # (auto) 0.3 10 ^3/uL (0-1.3); Monocytes % (auto) 7.8 % (0.0-12.0); Neutrophils # (auto) 1.6 10 ^3/uL (1.6-8.6); Neutrophils % (auto) 38.8 % (37.0-80.0); Nucleated Red Blood Cells % 0.5 %; Platelet Count (auto) 158 10^3/uL (140-450); Red Blood Cells 4.17 10^6/uL (4.0-5.20); Red Cell Distribution Width 12.6 % (11.8-14.3); White Blood Cell 4.1 10^3/uL (4.4-10.8)
[2025-01-12 18:38] LABS: Glucose 198 mg/dL (74-106); Potassium 3.4 mmol/L (3.5-5.1)
[2025-01-12 19:28] VITALS: PULSE 96; RESP 18; O2SAT 96
[2025-01-12 21:33] LABS: Urine Bacteria FEW /hpf (None Seen); Urine Blood Negative /uL (Negative); Urine Clarity Clear (Clear); Urine Color Light-Yellow (Yellow); Urine Protein, UAD Negative (Negative); Urine Specific Gravity 1.018 (1.001-1.035); Urine Squamous Epithelial Cell FEW /hpf (<5); Urine Urobilinogen Normal (Negative); Urine WBC 1 /HPF (0-5)
[2025-01-13 07:45] VITALS: TEMP 97.9
[2025-01-13 08:04] VITALS: PULSE 90; RESP 18; O2SAT 97
[2025-01-13] MEDS ORDERED: HYDROcodone-ACET 5/325MG TAB PO ONE (08:15)
[2025-01-13] MEDS ORDERED: HYDROcodone-ACET 5/325MG TAB PO PRN (08:15)
[2025-01-13] MEDS ORDERED: hydrALAZINE HCL 20 MG/ML VL IV PRN (08:15)
[2025-01-13] MEDS ORDERED: HYDROcodone-ACET 10/325MG TAB PO ONE (08:15)
--- NOTE | 2025-01-13 08:58 | DVHHPRES ---
History of Present Illness Resident Creating Document: STACIE MCDONALD RESIDENT History of Present Illness 54-year-old female with past medical history of hypertension presented as she was in urgent care for back pain and had high blood pressure, was referred to the ER. On presentation patient had blood pressure in the range of hypertensive crisis, was started on nicardipine drip by the ER physician. Patient is denying any complaints of headache, shortness of breath, chest pain, decreased urine output, blurry vision Denied any other complaints of seizures, nausea, vomiting, joint pain. Mentioned she had not been taking her antihypertensive medication as she ran out of them Past medical history Hypertension Past surgical history Denied Social history Denies smoking, alcohol, marijuana or any other drug intake Review of Systems Review of Systems ROS Constitutional: No: Fever, Chills, Sweats, Weakness, Malaise, Other Eyes: No: Pain, Vision change, Conjunctivae inflammation, Eyelid inflammation, Other, Redness ENT: No: Ear pain, Ear discharge, Nose pain, Nose discharge, Nose congestion, Mouth pain, Mouth swelling, Throat pain, Throat swelling, Other Respiratory: No: Cough, Dry, Shortness of breath, SOB with excertion, Wheezing, Hemoptysis, Pleuritic Pain, Sputum, Wheezing, Other Cardiovascular: No: Chest Pain, Palpitations, Orthopnea, Paroxysmal Noc. Dyspnea, Edema, Lt Headedness, Other Gastrointestinal: No: Nausea, Vomiting, Abdominal Pain, Diarrhea, Constipation, Melena, Hematochezia, Other Musculoskeletal: No: other, neck pain, shoulder pain, arm pain, back pain, hand pain, leg pain, foot pain Neurological:; No: Weakness, Numbness, Incoordination, Change in speech, Confusion, Seizures Allergies: Coded Allergies: NO KNOWN ALLERGIES (Unverified , 11/21/18) Medications Current Medications Medications Dose Ordered Sig/Marky Route Start Time Stop Time Status Last Admin Dose Admin Amlodipine Besylate 5 mg DAILY PO 01/14/25 10:00 Hydralazine HCl 10 mg Q6HP PRN IV 01/13/25 08:15 Acetaminophen/ Hydrocodone Bitart 1 tab Q6HPRN PRN PO 01/13/25 08:15 Exam Vital Signs Vital Signs Date Time Temp Pulse Resp B/P (MAP) Pulse Ox O2 Delivery O2 Flow Rate FiO2 01/13/25 08:04 90 18 97 Room Air* 0 21 01/13/25 08:00 171/94 (119) 01/13/25 07:45 97.9 97.9 Exam Examination General Appearance: Alert, Oriented X3, Cooperative, No acute distress HEENT: EOMI Respiratory: Clear to auscultation, Normal air movement Cardiovascular: Regular rate, Normal S1, Normal S2 Abdominal: Normal bowel sounds Extremities: No cyanosis, No edema, Normal pulses, No tenderness/swelling Skin: No rashes, No breakdown Neuro: Normal gait, Normal speech, Strength at 5/5 X4 ext, Normal tone, Sensation intact, Cranial nerves 3-12 NL, Reflexes 2+ Psych/Mental Status: Mental status NL, Mood NL Labs/Xrays Labs Test 01/12/25 21:13 01/12/25 18:05 Range/Units Urine Color Light-yellow Yellow Urine Clarity Clear Clear Urine pH 7.0 5.0-9.0 Urine Specific [place] 1.018 1.001-1.035 Urine Protein Negative Negative Urine Ketones Negative Negative Urine Blood Negative Negative /uL Urine Nitrite Negative Negative Urine Bilirubin Negative Negative Urine Urobilinogen Normal Negative mg/dL Urine Leukocyte Esterase 1+ Negative /uL Urine RBC 1 0 - 4 /hpf Urine Microscopic WBC 1 0-5 /HPF Urine Squamous Epithelial Cells Few <5 /hpf Urine Bacteria Few H None Seen /hpf Urine Glucose Trace Normal mg/dL White Blood Count 4.1 L 4.4-10.8 10^3/uL Red Blood Count 4.17 4.0-5.20 10^6/uL Hemoglobin 11.5 L 12.2-16.2 g/dL Hematocrit 34.3 L 36.0-46.0 % Mean Corpuscular Volume 82.3 80.0-100.0 fL Mean Corpuscular Hemoglobin 27.5 L 28.0-32.0 pg Mean Corpuscular Hemoglobin Concent 33.4 32.0-36.0 g/dL Red Cell Distribution Width 12.6 11.8-14.3 % Platelet Count 158 140-450 10^3/uL Mean Platelet Volume 10.3 6.9-10.8 fL Neutrophils (%) (Auto) 38.8 37.0-80.0 % Lymphocytes (%) (Auto) 51.2 H 10.0-50.0 % Monocytes (%) (Auto) 7.8 0.0-12.0 % Eosinophils (%) (Auto) 1.5 0.0-7.0 % Basophils (%) (Auto) 0.7 0.0-2.0 % Neutrophils # (Auto) 1.6 1.6-8.6 10 ^3/uL Lymphocytes # (Auto) 2.1 0.4-5.4 10 ^3/uL Monocytes # (Auto) 0.3 0-1.3 10 ^3/uL Eosinophils # (Auto) 0.1 0-0.8 10 ^3/uL Basophils # (Auto) 0 0-0.2 10 ^3/uL Nucleated Red Blood Cells 0.5 % Sodium Level 140 136-145 mmol/L Potassium Level 3.4 L 3.5-5.1 mmol/L Chloride Level 104 98-107 mmol/L Carbon Dioxide Level 29 20-31 mmol/L Anion Gap 7 5-15 Blood Urea Nitrogen 19 9-23 mg/dL Creatinine 1.09 H 0.550-1.02 mg/dL Glomerular Filtration Rate Calc 61 >90 mL/min BUN/Creatinine Ratio 17.4 10.0-20.0 Serum Glucose 198 H 74-106 mg/dL Calcium Level 9.7 8.7-10.4 mg/dL Assessment/Plan Assessment/Plan Assessment/plan # hypertensive urgency -likely due to non adherence -patient currently on nicardipine drip -consider ordering Chest xray, urine protein -resume home meds Case discussion with dr maldonado Plan discussed with: Patient, Other My Orders Orders - STACIE MCDONALD Procedure Category Date Status Time Admit ADMIT 01/13/25 Transmitted 02:05 Oxygen By Nasal RT 01/13/25 Transmitted Cannula 02:05 Stat Ekg For Chest [facility] 01/13/25 In Process Pain 02:05 Notify Of Changes [facility] 01/13/25 In Process From Base 02:05 Metal Numerical Control Programmer For [facility] 01/13/25 In Process 24 Hours 02:05 Emergency Dysrhythmia [facility] 01/13/25 In Process Protocol 02:05 Rhythm Strips Once [facility] 01/13/25 In Process Every Shift 02:05 Date of Service: Jan 13, 2025 Billing Provider: PAUL MALDONADO MD Common Visit Codes: [id number] INP/OBS CARE (HIGH) STACIE MCDONALD RESIDENT Jan 13, 2025 08:58 PAUL MALDONADO MD Jan 13, 2025 11:18
[2025-01-13] MEDS: HYDROcodone-ACET 10/325MG TAB PO ONE (09:00)
[2025-01-13] MEDS: hydrALAZINE HCL 20 MG/ML VL IV ONE (09:03)
[2025-01-13] MEDS: amLODIPine BESYLATE 5 MG TAB PO ONE (09:04)
[2025-01-13] MEDS ORDERED: LABETALOL HCL 20 MG/4 ML VL IV ONE (10:00)
--- NOTE | 2025-01-13 10:20 | DVH ---
INDICATION: back pain TECHNIQUE: Frontal and lateral views of the lumbar spine were obtained. COMPARISON: None FINDINGS: . There are no fractures or subluxations. Vertebral body heights and disc spaces are well m aintained. Paravertebral soft tissues are unremarkable. IMPRESSION: 1. Of the visualized spine, there is no evidence for fracture or subluxation.
[2025-01-13 10:31] LABS: Basophils # (auto) 0 10 ^3/uL (0-0.2); Eosinophils # (auto) 0.1 10 ^3/uL (0-0.8); Eosinophils % (auto) 1.3 % (0.0-7.0); Hematocrit 38.1 % (36.0-46.0); Hemoglobin 12.7 g/dL (12.2-16.2); Lymphocytes # (auto) 2.1 10 ^3/uL (0.4-5.4); Lymphocytes % (auto) 45.2 % (10.0-50.0); Mean Corpuscular Hemoglobin 27.4 pg (28.0-32.0); Mean Corpuscular Hgb Conc. 33.3 g/dL (32.0-36.0); Mean Corpuscular Volume 82.4 fL (80.0-100.0); Monocytes # (auto) 0.3 10 ^3/uL (0-1.3); Monocytes % (auto) 5.7 % (0.0-12.0); Neutrophils # (auto) 2.2 10 ^3/uL (1.6-8.6); Neutrophils % (auto) 46.8 % (37.0-80.0); Nucleated Red Blood Cells % 0.5 %; Platelet Count (auto) 172 10^3/uL (140-450); Red Blood Cells 4.62 10^6/uL (4.0-5.20); White Blood Cell 4.6 10^3/uL (4.4-10.8)
--- NOTE | 2025-01-13 11:04 | DVH ---
EXAM: XY L HIP COMPLETE XRAY CLINICAL INDICATION: back pain TECHNIQUE: XY L HIP COMPLETE XRAY Comparison: None FINDINGS/IMPRESSION: There is no evidence of acute fracture or dislocation. The visualized joint space is well maintained. The alignment is anatomical. There is no radiopaque foreign body. Large stool burden.
[2025-01-13] MEDS ORDERED: AMLO1TAB22 PO (11:56)
[2025-01-13] MEDS ORDERED: CYCL-837 PO (11:56)
[2025-01-13] MEDS ORDERED: HYDR25TA5 PO (11:56)
[2025-01-13 12:57] VITALS: BP 143/94
[2025-01-13 13:24] LABS: Alanine Aminotransferase 20 U/L (7-40); Albumin 4.3 g/dL (3.2-4.8); Alkaline Phosphatase 68 U/L (46-116); Anion Gap 8 (5-15); Aspartate Aminotransferase 29 U/L (13-40); BUN/Creatinine Ratio 17.6 (10.0-20.0); Blood Urea Nitrogen 18 mg/dL (9-23); Calcium 9.9 mg/dL (8.7-10.4); Carbon Dioxide 28 mmol/L (20-31); Chloride 103 mmol/L (98-107); Sodium 139 mmol/L (136-145)
[2025-01-13 13:25] LABS: Bilirubin, Total 0.5 mg/dL (0.2-1.0); Glucose 161 mg/dL (74-106); Magnesium 1.4 mg/dL (1.6-2.6); Potassium 3.5 mmol/L (3.5-5.1)
[2025-01-13 14:00] VITALS: PULSE 93; RESP 16; O2SAT 98
[2025-01-13 15:35] LABS: Amphetamine Screen, Urine Neg (NEGATIVE)
[2025-01-13 15:39] LABS: Barbiturate Scree,Urine Neg (NEGATIVE); Benzodiazephine Screen, Urine Neg (NEGATIVE); Cannabinoid Screen, Urine Neg (NEGATIVE); Cocaine Screen, Urine Neg (NEGATIVE); Opiate Scree,Urine Neg (NEGATIVE); Phencyclidine Screen, Urine Neg (NEGATIVE)
--- NOTE | 2025-01-13 17:30 | DVHDSRES ---
Discharge Summary Date of Admission Resident Creating Document: STACIE MCDONALD RESIDENT Jan 13, 2025 at 02:05 Date of Discharge: Jan 13, 2025 Admitting Diagnosis Hypertensive emergency Labs/Diagnostic Data: Laboratory Results Test 01/13/25 12:56 01/13/25 09:50 01/12/25 21:13 Sodium Level 139 mmol/L (136-145) Potassium Level 3.5 mmol/L (3.5-5.1) Chloride Level 103 mmol/L (98-107) Carbon Dioxide Level 28 mmol/L (20-31) Anion Gap 8 (5-15) Blood Urea Nitrogen 18 mg/dL (9-23) Creatinine 1.02 mg/dL (0.550-1.02) Glomerular Filtration Rate Calc 66 mL/min (>90) BUN/Creatinine Ratio 17.6 (10.0-20.0) Serum Glucose 161 mg/dL (74-106) Calcium Level 9.9 mg/dL (8.7-10.4) Magnesium Level 1.4 mg/dL (1.6-2.6) Total Bilirubin 0.5 mg/dL (0.2-1.0) Aspartate Amino Transferase (AST) 29 U/L (13-40) Alanine Aminotransferase (ALT) 20 U/L (7-40) Alkaline Phosphatase 68 U/L (46-116) Total Protein 8.0 g/dL (5.7-8.2) Albumin 4.3 g/dL (3.2-4.8) White Blood Count 4.6 10^3/uL (4.4-10.8) Red Blood Count 4.62 10^6/uL (4.0-5.20) Hemoglobin 12.7 g/dL (12.2-16.2) Hematocrit 38.1 % (36.0-46.0) Mean Corpuscular Volume 82.4 fL (80.0-100.0) Mean Corpuscular Hemoglobin 27.4 pg (28.0-32.0) Mean Corpuscular Hemoglobin Concent 33.3 g/dL (32.0-36.0) Red Cell Distribution Width 13.0 % (11.8-14.3) Platelet Count 172 10^3/uL (140-450) Mean Platelet Volume 10.6 fL (6.9-10.8) Neutrophils (%) (Auto) 46.8 % (37.0-80.0) Lymphocytes (%) (Auto) 45.2 % (10.0-50.0) Monocytes (%) (Auto) 5.7 % (0.0-12.0) Eosinophils (%) (Auto) 1.3 % (0.0-7.0) Basophils (%) (Auto) 1.0 % (0.0-2.0) Neutrophils # (Auto) 2.2 10 ^3/uL (1.6-8.6) Lymphocytes # (Auto) 2.1 10 ^3/uL (0.4-5.4) Monocytes # (Auto) 0.3 10 ^3/uL (0-1.3) Eosinophils # (Auto) 0.1 10 ^3/uL (0-0.8) Basophils # (Auto) 0 10 ^3/uL (0-0.2) Nucleated Red Blood Cells 0.5 % Hemoglobin A1c 6.2 % A1C (<5.7) Thyroid Stimulating Hormone (TSH) 2.12 uIU/mL (0.55-4.78) Urine Color Light-yellow (Yellow) Urine Clarity Clear (Clear) Urine pH 7.0 (5.0-9.0) Urine Specific [place] 1.018 (1.001-1.035) Urine Protein Negative (Negative) Urine Ketones Negative (Negative) Urine Blood Negative /uL (Negative) Urine Nitrite Negative (Negative) Urine Bilirubin Negative (Negative) Urine Urobilinogen Normal mg/dL (Negative) Urine Leukocyte Esterase 1+ /uL (Negative) Urine RBC 1 /hpf (0 - 4) Urine Microscopic WBC 1 /HPF (0-5) Urine Squamous Epithelial Cells Few /hpf (<5) Urine Bacteria Few /hpf (None Seen) Urine Glucose Trace mg/dL (Normal) Urine Opiates Screen Neg (NEGATIVE) Urine Fentanyl Screen Neg (NEGATIVE) Urine Barbiturates Screen Neg (NEGATIVE) Urine Phencyclidine Screen Neg (NEGATIVE) Urine Amphetamines Screen Neg (NEGATIVE) Urine Benzodiazepines Screen Neg (NEGATIVE) Urine Cocaine Screen Neg (NEGATIVE) Urine Cannabinoids Screen Neg (NEGATIVE) Other Laboratory Tests 01/13/25 12:56 01/13/25 09:50 Brief Hx & Hospital Course: Patient is 54 years old female with past medical history of hypertension came d ue to elevated blood pressure as she was referred from a urgent care center. Patient went to urgent care center for back pain and she was found to have elevated blood pressure. At the urgent care her blood pressure was 184/30, at the ER her blood pressure was 191/121. Patient complained of back pain that has been going on for last 2 weeks and got worse lately 10/10, radiating to the left leg. Initial lab workup revealed mild hypokalemia potassium 3.4, SHERYL with serum creatinine 1.09, HGB A1c 6.2, magnesium 1.4, TSH 2.12. Hospital course-patient came to the hospital due to elevated blood pressure.as she was referred from a urgent care center. Patient went to urgent care center for back pain and she was found to have elevated blood pressure. At the urgent care her blood pressure was 184/30, at the ER her blood pressure was 191/121. Patient complained of back pain that has been going on for last 2 weeks and got worse lately 10/10, radiating to the left leg. Initial lab workup revealed mild hypokalemia potassium 3.4, SHERYL with serum creatinine 1.09, HGB A1c 6.2, magnesium 1.4, TSH 2.12. X-ray of the hip and lumbar spine was negative for any fracture. Patient was treated conservatively and blood pressure improved. Patient is being discharged home with the amlodipine 10 mg p.o. daily, hydrochlorothiazide 12.5 mg p.o. daily. Patient was advised for outpatient physical therapy but insurance would not cover. Patient's meds were sent to the pharmacy electronically. Patient was hemodynamically stable on discharge. Assessment Hypertensive emergency SHERYL likely due to VMN Prediabetes Acute complicated cystitis with end-organ damage ? Sciatica Hypomagnesemia Obesity Discharge plan Amlodipine 10 mg p.o. daily Hydrochlorothiazide 12.5 mg p.o. daily flexoril 10 mg po qhs for 5 days after that Flexoril 10 mg po qhs prn for 5 days Keflex 500 mg p.o. b.i.d. for 5 days Please follow up with the primary care physician in 1-2 days for further evaluation and care Please follow up with the primary care physician with a report of urine culture sensitivity Patient was denied by the insurance for outpatient physical therapy Patient was counseled about the effect of obesity on health, weight reduction, physical activity, low-fat diet Condition at Discharge: Stable Final Diagnosis/Problems List Hypertensive emergency SHERYL likely due to VMN Prediabetes Acute complicated cystitis with the endocrine damage Suspected sciatic Hypomagnesemia Obesity Discharge Disposition: Home Discharge Instruct/Medications Diet: Cardiac 2g Na,low cholest Activity: No Restrictions, As Tolerated Follow Up/Referral: please follow up with your PCP in 1-2 days Follow up with your primary care physician with the urine culture sensitivity out patient Physical therapy -patient denied Medications: flexoril 10 mg po qhs for 5 days after that Flexoril 10 mg po qhs prn for 5 days Amlodipine 10 mg qd Hydrochlortghiazide 12.5 po qd Discharge Statement: "Patient was advised to return to the ER or call 911 if any headaches, dizziness, shortness of breath, chest pain, abdominal pain, bleeding, fevers, or worsening of medical condition. Patient was counseled about treatment plan, medications, possible side effects, patientverbalized understanding. All questions were answered to the best of my ability. This discharge took greater then 30 minutes in planning, reviewing documentation, counseling the patient, and discussing with other team members." ASSESSMENT ASSESSMENT Assessment Hypertensive emergency ?Sciatica HLD Obesity ARYAN MILES RESIDENT Jan 13, 2025 17:30
[2025-01-13] MEDS ORDERED: CEPH250C PO (17:33)
[2025-01-13] MEDS ORDERED: cefTRIAXone 1GM/50ML D5W 50 ML IV ONE (17:45)
[2025-01-13] MEDS ORDERED: MAGNESIUM SULFATE 1GM/100ML 100 ML IV SCH (18:00)
[2025-01-14] MEDS ORDERED: amLODIPine BESYLATE 5 MG TAB PO SCH (10:00)
[2025-01-14 16:53] LABS: LDL Cholesterol 57 mg/dL (< 100)
[2025-01-14 16:54] LABS: Cholesterol 156 mg/dL (< 200); HDL Cholesterol 49 mg/dL (40-59)
[2025-01-14 17:04] LABS: Triglycerides 259 mg/dL (< 150)
== END 2025-01-13 14:51 | disposition home or self-care (01) | DRG 304 ==
LOC: ER 17:15 → OVERFLOW 01-13 02:05
PROVIDERS: ADMIT Student in an Organized Health Care Education/Training Program; ATTEND Student in an Organized Health Care Education/Training Program
DX: I16.1 Hypertensive emergency (principal); N17.0 Acute kidney failure with tubular necrosis; N30.00 Acute cystitis without hematuria; Z68.42 Body mass index [BMI] 45.0-49.9, adult; E83.42 Hypomagnesemia; E66.9 Obesity, unspecified; R73.03 Prediabetes; E78.5 Hyperlipidemia, unspecified; Z98.891 History of uterine scar from previous surgery; Z79.899 Other long term (current) drug therapy
CPT/HCPCS: 36415; 72100; 73502; 80048; 80053; 80061; 80307; 81001; 83036; 83735; 84443; 85025; 96374; 99291; G0378